=== PATIENT | male | born 1970 | race Caucasian/White ===

== ENCOUNTER 2019-03-06 09:26 | Emergency (ER) | payer OTHER, SELFPAY ==
[2019-03-06 09:28] VITALS: BP 115/58; PULSE 80; RESP 16; TEMP 36.6; O2SAT 99; BMI 54.0
--- NOTE | 2019-03-06 09:43 | RAD_ITS ---
STUDY: X-RAY - RIGHT KNEE REASON FOR EXAM: Male, 48 years old. Pain following a twisting injury. TECHNIQUE: 4 view(s) of the knee. COMPARISON: None. FINDINGS: Normal visualized distal femur. Normal visualized proximal tibia and fibula. Normal proximal tibiofibular articulation. Normal medial femorotibial compartment. Normal lateral femorotibial compartment. Normal patellofemoral articulation. Small joint effusion. RAD/Knee 4 or More Views IMPRESSION: Small joint effusion. Electronically Signed: Michel Alvarez, at 10:10 EDT , Service support ,
--- NOTE | 2019-03-06 09:44 | ED.VISSUMM ---
- ER Visit Summary Date of Service: 03/06/19 Chief Complaint: Atraumatic right knee pain History of Present Illness: The patient is a 48 M no significant past medical or surgical history. Currently is on no medications. Patient states on Tuesday he was bowling and was helping small children bowl. 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 Worse with bearing weight. No prior knee history. No knee surgery. He said there may be minimal swelling but not significant swelling. No redness or fever. No chills. He denies any hip or ankle pain. He is never had any significant problem with his knee before. Physical Examination: Well-appearing middle-age male. No acute distress. Vital signs are stable and afebrile. HEENT exam unremarkable. Neck nontender. Lungs clear to auscultation bilaterally. Heart regular rhythm no murmur. Abdomen soft and nontender. Patient is moving all 4 extremities. Neurovascularly intact. His right knee there is no significant swelling. He has full flexion-extension of the right knee with mild discomfort with flexion. He can extend 180 degrees. His quadriceps patellar and infrapatellar tendons are both intact. He can lift his leg off the bed without any difficulty and full extension. His ACL PCL are intact. There is no significant effusion. There is no redness or warmth. No signs of cellulitis. Medial collateral lateral collateral ligaments are both intact. With good endpoints. Mild joint line tenderness medially and laterally. Lower leg is nontender without any swelling no calf pain or edema. Right foot is neurovascular intact with normal dorsi and plantar flexion. Normal motor strength and sensation. Test Results: Right knee x-ray is mild medial joint space narrowing. No bony deformity or fracture. Small joint effusion. Read both by myself and the radiologist. Emergency Department Course and Treatment: Patient felt a pop in his knee with bending down. He understands limitations of plain x-ray. Motrin for pain Repeat exam at 10:20 AM unchanged. I did go the x-ray of the patient. I did explain to him that this could just be from a knee sprain and mild arthritis or could even be a meniscal tear that we would not see on a plain film. Conservative therapy with ice, rest and Motrin if not improving orthopedic follow-up. Treatment Plan: Ice to the knee. Rest. Motrin for inflammation. If not improving in 1 week follow-up with orthopedics. Disposition: Discharge Impression: Atraumatic right knee pain uncertain etiology This note was generated with Periscope dictation software. It may contain incorrect words, spelling, and punctuation that were not noted in review of the chart prior to signing ED Disposition - Plan for ED Patient: Disposition: Home or Assisted Living Instructions: ED Knee Pain [facility] Referrals: Little Reyes DO [STAFF PHYSICIAN] - 10-14 Days if not better Additional Instructions: Ice to your knee to decrease pain and swelling. Motrin to decrease pain and swelling. Increase activity as tolerated. Not improving he will need further evaluation by a local orthopedic surgeon.
--- NOTE | 2019-03-06 09:48 | ED.DEP ---
ED Disposition - Plan for ED Patient: Disposition: Home or Assisted Living Instructions: ED Knee Pain [facility] Referrals: Little Reyes DO [STAFF PHYSICIAN] - 10-14 Days if not better Additional Instructions: Ice to your knee to decrease pain and swelling. Motrin to decrease pain and swelling. Increase activity as tolerated. Not improving he will need further evaluation by a local orthopedic surgeon.
[2019-03-06] MEDS: Ibuprofen 600 MG Tablet PO (10:11)
[2019-03-06 10:55] VITALS: BP 122/69; PULSE 52; RESP 16; O2SAT 98
== END 2019-03-06 10:56 | disposition home or self-care (01) ==
PROVIDERS: Emergency Provider Emergency Medicine
DX: M25.561 Pain in right knee (principal); Z72.0 Tobacco use
CPT/HCPCS: 73564; 99283

== ENCOUNTER 2019-10-15 10:15 | Emergency (ER) | payer OTHER, SELFPAY ==
[2019-10-15 10:16] VITALS: BP 133/81; PULSE 79; RESP 20; TEMP 36.7; O2SAT 97; BMI 22.6
[2019-10-15] MEDS: Naproxen 500 MG Tablet PO (10:27)
--- NOTE | 2019-10-15 10:31 | RAD_ITS ---
STUDY: X-RAY - RIGHT KNEE REASON FOR EXAM: Male, 49 years old. 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 TECHNIQUE: 4 view(s) of the knee. COMPARISON: None. FINDINGS: Normal visualized distal femur. Normal visualized proximal tibia and fibula. Normal proximal tibiofibular articulation. Normal medial femorotibial compartment. Normal lateral femorotibial compartment. Normal patellofemoral articulation. There is a moderate volume joint effusion. The soft tissue structures are unremarkable. RAD/Knee 4 or More Views IMPRESSION: Effusion, as described above. Electronically Signed: Elijah Weber MD at 10:52 EST Tel , Service support ,
--- NOTE | 2019-10-15 10:46 | ED.DCSUM_ITS ---
History of Present Illness Chief Complaint: Lower Extremity Injury Informant: Patient Onset: Days Quality of Pain: Dull, Throbbing Current Severity: Mild Maximum Severity: Moderate Worsened by: Weightbearing Relieved by: Rest Associated Symptoms: Negative for: Parasthesias, Weakness, Loss of function, Inability to ambulate, Loss of consciousness, Amnesia Narrative: Patient is a 49-year-old male who injured his knee several months ago. He did not follow-up. He presents with reinjury Tuesday. There is no history of direct trauma. He presents because of pain, swelling and difficulty extending and flexing his knee. He denies paresthesia, anesthesia or motor weakness. He has no other complaints. He has no contraindication to NSAIDs. Tetanus Immunization: 5-10 years Prior similar symptoms: Yes Recent Illness/Hospitalization: No - Past Medical History (1) No significant past medical history Status: Acute Past Medical History - Allergies and Home Meds Allergies/Adverse Reactions: Allergies No Known Allergies Allergy (Verified 10/15/19 10:17) Primary Care Physician: Care Physician,No Primary [Primary Care Provider] - Prior records reviewed: Yes Surgical History: no surgical history Lives: Alone Smoking Status: Current every day smoker Alcohol: Rare Drugs: None Review of Systems Musculoskeletal: Reports: Swelling, Extremity Pain. Denies: Myalgias, Arthralgias, Neck pain, Back pain Skin: Denies: Rash, Abrasions, Wounds Neurological: Denies: Weakness, Parasthesia, Numbness Hematologic: Denies: Easy bruising, Easy bleeding Allergy: Denies: Uticaria, Swelling of the mouth Physical Exam Vital Signs/Narrative: Vital Signs Temp Pulse Resp BP Pulse Ox 10/15/19 10:16 98.1 F 79 20 H 133/81 H 97 Inital Vital Signs reviewed: Yes General: Well nourished, Well developed Head: Normocephalic, Atraumatic Eyes: Perrl, EOMI. Negative for: Pale conjunctiva, Scleral icterus Cardiovascular: Regular rate, Regular rhythm, No murmurs Respiratory: No distress, CTA bilaterally, Chest nontender Abdomen: Soft, Nontender, Nondistended Extremeties: The right knee is swollen. The patella is not ballotable. There is an effusion. There is joint line tenderness and tenderness over the MCL. He is able to extend 170 degrees and flex to 100 degrees. There is pain with varus and valgus stress testing. There is no laxity compared to the uninjured knee. Mattie's test is negative. Modified Anna's test elicited pain. There is no click. There is no fullness or pain in the popliteal fossa. DP and PT pulses are palpable. Skin: Normal color, No rash, No Trauma. Negative for: Cyanosis, Diaphoresis, Jaundice Neurological: Alert, Oriented x3, Cranial nerves II-XII grossly intact, Normal Strength, Normal Sensation. Negative for: Normal Gait Psychological: Normal affect, Normal Mood - Glascow Coma Scale Eye Opening: Spontaneous Motor: Obeys Commands Verbal: Oriented Coma Scale Total: 15 Diagnostic/Tx/Re-eval 10/15/19 10:31 Knee 4 or More Views [RAD] Stat - Medical Decision Making X-ray was obtained to rule out fracture. Patient does have a traumatic effus ion. Suspect meniscal injury. ED Disposition - Plan for ED Patient: Disposition: Home or Assisted Living Diagnosis: Effusion of knee joint, left Instructions: KNEE PAIN, Meniscus Injury (Possible) Prescriptions: Naproxen [Naprosyn] 500 mg PO BID #14 tab Transmission Status: Pending to [facility] Referrals: Care Physician,No Primary [Primary Care Provider] - Omar Lind MD [STAFF PHYSICIAN] - 5-7 Days Additional Instructions: Apply ice to knee 6-8 times a day. Call Dr. Barrett Lind's office today to be seen in 5 to 7 days. Weight-bear as tolerated.
[2019-10-15 11:19] VITALS: BP 109/77; PULSE 62; RESP 15; O2SAT 98
== END 2019-10-15 11:21 | disposition home or self-care (01) ==
PROVIDERS: Emergency Provider Emergency Medicine
DX: M25.462 Effusion, left knee (principal); F17.200 Nicotine dependence, unspecified, uncomplicated
CPT/HCPCS: 73564; 99283

== ENCOUNTER → 2019-11-10 10:43 | Outpatient (CLI) | payer OTHER, SELFPAY ==
[2019-10-15 10:16] VITALS: BMI 22.6
--- NOTE | 2019-11-10 11:06 | EKG12_ITS ---
Test Reason : PREOP Blood Pressure : / mmHG Vent. Rate : 069 BPM Atrial Rate : 069 BPM P-R Int : 124 ms QRS Dur : 086 ms QT Int : 378 ms P-R-T Axes : 073 079 076 degrees QTc Int : 405 ms Normal sinus rhythm Normal ECG Confirmed by MEÑO GONGORA, EARLINE ([id number]), industrial editor BRANDY PISANO ([id number]) on 11/13/2019 8:58:43 AM Referred By: Cris Benson Confirmed By:EARLINE WILDER MD
--- NOTE | 2019-11-10 11:08 | RAD_ITS ---
STUDY: X-RAY CHEST REASON FOR EXAM: Male, 49 years old. PRE OP TECHNIQUE: PA and lateral views of the chest. COMPARISON: None. FINDINGS: The lungs are clear and expanded. There is no demonstrated pleural abnormality. Normal size heart. Normal mediastinum and ryan. Normal visualized pulmonary arteries. Normal visualized aortic arch and descending thoracic aorta. Normal visualized thoracic spine. Normal visualized ribs, clavicles, and shoulders. There is no demonstrated abnormality of the visualized soft tissue structures of the upper abdomen. RAD/Chest PA and Lateral IMPRESSION: No acute cardiopulmonary process. Electronically Signed: Rogelio Feliciano MD (Brooks) at 21:34 EST , Service support ,
[2019-11-10 11:21] LABS: Absolute Lymphocyte Count 2.63 X10^3/uL (0.83-4.51); Absolute Neutrophil Count 7.6 X10^3/uL (2.0-7.7); Basophil# 0.11 X10^3/uL; Basophil% 0.9 % (0-1); Eosinophil# 0.35 X10^3/uL; Hematocrit 43.8 % (40-54); Hemoglobin 14.1 g/dL (13.0-16.5); Lymphocyte # 2.63 X10^3/ul (4.0); Lymphocyte % 22.3 % (19-41); Mean Corp Hgb Conc 32.2 g/dL (32-36); Mean Corpuscular Hgb 28.1 pg (27.0-32.0); Mean Corpuscular Volume 87.4 fL (80-94); Mean Platelet Vol. 10.1 fl (6.2-12.0); Monocyte# 1.03 X10^3/uL; Monocyte% 8.7 % (0-10); NRBC Flagged by Analyzer 0 % (0-5); Neutrophil # 7.61 X10^3/uL (2.7-7.7); Neutrophil % 64.6 % (47-70); Platelet Count 295 K/mm3 (150-450); RBC Distribution Width SD 41.2 fl (35.1-43.9); Red Blood Count 5.01 M/mm3 (4.6-6.2); White Blood Count 11.8 K/mm3 (4.4-11.0)
[2019-11-10 11:57] LABS: Anion Gap 3 (5-15); BUN 13 mg/dL (7-18); BUN/Creat Ratio 15.4 RATIO (10-20); Calcium,Total 8.8 mg/dL (8.5-10.1); Chloride 108 mmol/L (98-107); Creatinine, Serum 0.85 mg/dL (0.70-1.30); EST Glomerular Filtration Rate 102 mL/min (>60); Est Glom Filt Rate - Afr Amer 124 mL/min (>60); Glucose 179 mg/dL (74-106); Potassium 3.9 mmol/L (3.5-5.1); Sodium Level 140 mmol/L (136-145)
== END ==
PROVIDERS: Referring Provider Physician Assistant; Visit Provider Physician Assistant
DX: Z01.818 Encounter for other preprocedural examination (principal)
CPT/HCPCS: 36415; 71046; 80048; 85025; 93005

== ENCOUNTER → 2019-11-22 15:39 | Outpatient (CLI) | payer OTHER, SELFPAY | PROVIDERS: Referring Provider Physician Assistant; Visit Provider Physician Assistant | DX: R73.09 Other abnormal glucose (principal) | CPT/HCPCS: 36415; 83036 ==

== ENCOUNTER 2022-07-20 06:24 | Emergency (ER) | payer OTHER, SELFPAY ==
[2022-07-20 06:25] VITALS: BP 142/91; PULSE 77; RESP 18; TEMP 36.6; O2SAT 99; BMI 21.4
--- NOTE | 2022-07-20 06:34 | EDS_ITS ---
HPI History of Present Illness Chief Complaint: Dental Informant: patient Narrative Narrative: 51-year-old male presenting to the emergency room with dental infection. Patient states that it began on Tuesday and he went to the urgent care yesterday. He was given a prescription for Augmentin and has had 2 pills. He states that his face is hurting him he did not get much sleep last night and he noted that the swelling was worse today. He is a smoker. He has not made a dentist appointment [facility] Medical History no medical history Home Medications amoxicillin 875 mg-potassium clavulanate 125 mg tablet 1 tab PO Q12H 10 days #20 tabs 07/19/22 [Rx Last Taken Unknown] oxycodone-acetaminophen 5 mg-325 mg tablet 1 tab PO Q6H PRN PRN pain 5 days #20 TABLETS 07/20/22 [Rx Last Taken Unknown] Allergy/AdvReac Type Severity Reaction Status Date / Time No Known Allergies Allergy Verified 07/20/22 06:24 Social History (Updated 07/20/22 @ 06:[address] Gene Corrales, ) current occupational status: employed Smoking Status: Current every day smoker tobacco type: cigarettes ROS ROS ED Constitutional Constitutional ED: Denies chills, fever(s) or weight loss Eyes Eyes: Denies change in vision or diplopia ENT ENT ED: Reports other Details: Facial pain and swelling dental pain ; Denies ear pain, rhinorrhea or sore throat Cardiovascular Cardiovascular: Denies chest pain, orthopnea, palpitations or racing heartbeat Respiratory/Chest Respiratory/Chest: Denies cough, dyspnea or orthopnea Gastrointestinal Gastrointestinal: Denies abdominal pain, diarrhea, nausea or vomiting Genitourinary Genitourinary ED: Denies dysuria, hematuria or urinary frequency Musculoskeletal Musculoskeletal: Denies arthralgias or myalgias Integumentary Denies abscess or rash Neurologic Neurologic: Denies headache(s) or weakness Psychiatric Psychiatric: Denies anxiety, depression, suicidal ideation or suicidal thoughts Endocrine Endocrinology: Denies polydipsia, polyphagia or polyuria Allergic/Immunologic Allergic/Immunologic ED: Denies mouth swelling, tongue swelling or urticaria EXAM Physical Exam Const Vital Signs: 07/20/22 06:25 Temperature 97.9 F Temperature Source Temporal Pulse Rate 77 Respiratory Rate 18 Blood Pressure 142/91 H Blood Pressure Mean 108 Pulse Ox 99 Oxygen Delivery Method Room Air Positive well nourished and well developed General Appearance ED: well developed HEENT Reports normocephalic, head/scalp atraumatic and moist mucous membranes HEENT Narrative: There is swelling over the left maxillary facial area. There is no trismus on examination. There is some swelling of the gumline but it is not demonstrating any fluctuance or pointing. Left upper tenderness of premolars. There is no overlying facial erythema. Eyes PERRL and EOMs intact bilaterally Neck no lymphadenopathy, supple and no JVD Resp normal respiratory effort and clear to auscultation bilaterally Cardio regular rate, regular rhythm and no murmurs GI normal to inspection, nondistended, normoactive bowel sounds and non-tender Palpation: soft Back/Spine no CVA tenderness and normal ROM Extremity normal to inspection General Extremety ED: Negative for edema General Extremity: Negative for edema Neuro oriented x3 and CN's II-XII intact bilaterally Sensorium / Orientation: alert Motor Exam: strength 5/5 throughout Psych mental status grossly normal Mood & Affect: Negative for depressed or tearful Skin no rashes or lesions noted and no wounds MDM MDM MDM Narrative Medical decision making narrative: I cannot say after 2 doses of Augmentin that this is a treatment failure and would recommend him staying on this. I can write him some Cardwell for pain would also recommend ice. I expressed the importance of calling now to get a dental appointment rather than waiting until later to make the appointment. We talked about when to return to see if this is amendable to drainage which at this point given the lack of fluctuance I do not think that it is amendable at this time. Discharge Plan Triage Chief Complaint: Dental ED Provider: Gene Corrales Dx/Rx/DC Orders Clinical Impression: Infected dental caries, Abscess, dental, Acute facial pain Instructions: Dental Abscess Prescriptions: New oxycodone-acetaminophen [oxycodone-acetaminophen] 5-325 mg tablet 1 tab PO Q6H PRN PRN (Reason: pain) 5 Days Qty: 20 0RF No Action amoxicillin-pot clavulanate 875-125 mg tablet 1 tab PO Q12H 10 Days Qty: 20 0RF Primary Care Provider: Care Physician,No Primary Referrals: Care Physician,No Primary [Primary Care Provider] - Disposition Disposition: Home, Self Care
== END 2022-07-20 07:07 | disposition home or self-care (01) ==
LOC: ED 07:02
PROVIDERS: Emergency Provider Emergency Medicine; Visit Provider Emergency Medicine
DX: K04.7 Periapical abscess without sinus (principal); K02.9 Dental caries, unspecified; F17.210 Nicotine dependence, cigarettes, uncomplicated
CPT/HCPCS: 99282

== ENCOUNTER 2022-08-10 15:37 | Emergency (ER) | payer OTHER, SELFPAY ==
[2022-08-10 15:38] VITALS: BP 154/88; PULSE 95; RESP 15; TEMP 36.6; O2SAT 99; BMI 22.8
[2022-08-10 15:39] VITALS: BP 154/88; PULSE 95; RESP 15; TEMP 36.6; O2SAT 99
--- NOTE | 2022-08-10 16:04 | ED.VIS.DENTA ---
HPI History of Present Illness Chief Complaint: Dental Informant: patient Onset/Context/Timing Onset: Days (2-3) Context: Gradual Onset Timing: Continuous Quality: Stabbing Location: Left upper molars Worsened by: Nothing Relieved by: - (Nothing) Associated Symptoms Assocated Symptom - Dental: jaw swelling, face swelling and cold sensitivity; Negative for fever or hot sensitivity Narrative Narrative: Patient presents with left upper dental pain that has been getting worse over the past 2 to 3 days. Patient had similar episode 1 month ago. Patient was given prescription for Augmentin and Marcellus at that time. Patient has not followed up with a dentist for this. Patient states he does not have a dentist. Patient describes the pain as stabbing. Patient states it is over the left upper molar area. Patient denies any fevers or chills. Patient states nothing makes it better nothing makes it worse. Patient admits to some facial and jaw swelling. Patient also admits to cold sensitivity. Prior similar symptoms: Yes PFSH PFSH Home Medications amoxicillin 875 mg-potassium clavulanate 125 mg tablet 875 mg PO Q12H #20 TABLETS 08/10/22 [Rx Last Taken Unknown] naproxen 500 mg tablet 500 mg PO BID PRN #20 tabs 08/10/22 [Rx Last Taken Unknown] Allergy/AdvReac Type Severity Reaction Status Date / Time No Known Allergies Allergy Verified 08/10/22 15:39 Surgical History (Updated 08/10/22 @ 16:[address] Rylan Armijo DO) Hx of right knee surgery Social History (Updated 07/20/22 @ 06:[address] Gene Corrales DO) current occupational status: employed Smoking Status: Current every day smoker tobacco type: cigarettes ROS ROS ED Constitutional Constitutional ED: Denies chills or fever(s) Eyes Eyes: Denies blurry vision or change in vision ENT ENT ED: Denies rhinorrhea or sore throat Cardiovascular Cardiovascular: Denies chest pain or palpitations Respiratory/Chest Respiratory/Chest: Denies cough or dyspnea Gastrointestinal Gastrointestinal: Denies nausea or vomiting Genitourinary Genitourinary ED: Denies dysuria or hematuria Musculoskeletal Musculoskeletal: Denies back pain or neck pain Integumentary Denies abscess or rash Neurologic Neurologic: Denies headache(s) or weakness Allergic/Immunologic Allergic/Immunologic ED: Denies mouth swelling or urticaria EXAM Physical Exam Const Vital Signs: 10/18/22 15:38 Temperature 97.8 F Temperature Source Temporal Pulse Rate 95 Respiratory Rate 15 Blood Pressure 154/88 H Blood Pressure Mean 110 Pulse Ox 99 Oxygen Delivery Method Room Air Positive well nourished and well developed General Appearance ED: well developed and NAD HEENT HEENT Narrative: There are multiple dental caries. There is some gingival edema over the left upper molar area. There is no erythema or fluctuance. There is no discharge or drainage. Oropharynx is clear. Airway is patent. Neck is supple. Trachea is midline. There is no cervical lymphadenopathy noted. There is no sublingual edema or erythema. There is no evidence of Neftali's angina. Mouth ED: Yes oral and palatal mucosa normal, Yes lips normal and Yes tongue normal Mouth: oral and palatal mucosa normal, lips normal and tongue normal Teeth and Gingiva: caries, gingiva abnormal Positive for gingival edema and poor dentition Throat: posterior oropharynx normal Eyes PERRL and EOMs intact bilaterally Neck no lymphadenopathy, supple and no JVD General: normal visual inspection; Negative for anterior neck swelling, tenderness or submandibular swelling Lymph Lymphatic: no lymphadenopathy noted Neuro oriented x3, CN's II-XII intact bilaterally, moves all extremities, no focal motor deficits and no sensory deficits noted Sensorium / Orientation: alert Motor Exam: strength 5/5 throughout Psych mental status grossly normal MDM MDM MDM Narrative Medical decision making narrative: Patient was treated with Augmentin 1 month ago. Patient was given a prescription for Augmentin. Patient was given his first dose here. Patient was also given a dose of Naprosyn and a prescription for Naprosyn. Patient was given a dental referral list. Patient was instructed to follow-up with a dentist in 5 to 7 days. Patient understood and was agreeable with the plan. All questions were answered. Discharge Plan Triage Chief Complaint: Dental ED Provider: Rylan Armijo Dx/Rx/DC Orders Clinical Impression: Infected dental caries Instructions: ED Dental Pain, ED Dental Cavity Prescriptions: New naproxen 500 mg tablet 500 mg PO BID PRN Qty: 20 0RF amoxicillin-pot clavulanate [amoxicillin-pot clavulanate] 875-125 mg tablet 875 mg PO Q12H Qty: 20 0RF Primary Care Provider: Care Physician,No Primary Referrals: Ivette John [Non-Staff] - 5-7 Days Care Physician,No Primary [Primary Care Provider] - Disposition Disposition: Home, Self Care
[2022-08-10] MEDS: Amox/Clavulanate 875 MG Tablet PO (16:20)
[2022-08-10] MEDS: Naproxen 250 MG Tablet 500 MG PO (16:20)
== END 2022-08-10 16:24 | disposition home or self-care (01) ==
LOC: ED 16:21
PROVIDERS: Emergency Provider Emergency Medicine; Visit Provider Emergency Medicine
DX: K02.9 Dental caries, unspecified (principal); F17.210 Nicotine dependence, cigarettes, uncomplicated
CPT/HCPCS: 99283